=== PATIENT | male | born 1995 | race Hispanic/Latino ===

== ENCOUNTER 2021-05-29 20:26 | Emergency (ER) | payer SELFPAY ==
[2021-05-29] MEDS ORDERED: PENICILLIN G BENZATHINE LA 1.2 MU TBX IM STA (20:42)
[2021-05-29] MEDS ORDERED: DEXAMETHASONE SOD PHOS 10 MG/1 ML VIAL IM ONE (20:45)
[2021-05-29] MEDS ORDERED: PENICILLIN G BENZATHINE LA 1.2 MU TBX ONE (20:57)
[2021-05-29] MEDS ORDERED: DEXAMETHASONE SOD PHOS 10 MG/1 ML VIAL ONE (20:57)
== END 2021-05-29 21:30 | disposition home or self-care (01) ==
LOC: ER 20:42
DX: J03.90 Acute tonsillitis, unspecified (principal); R50.9 Fever, unspecified; F41.9 Anxiety disorder, unspecified
CPT/HCPCS: 99282; J0561; J1100